=== PATIENT | female | born 1935 | race Two or more races ===

== ENCOUNTER 2020-01-21 13:42 | Emergency (ER) | payer OTHER ==
[~2020-01-21] VITALS: Ht 152.4 cm; Wt 61.2 kg
[2020-01-22] MEDS ORDERED: ACETAMINOPHEN500 M1 PO (01:05)
== END 2020-01-22 01:19 | disposition home or self-care (01) ==
LOC: ER 13:42
DX: E86.0 Dehydration (principal); R53.1 Weakness; Z20.828 Contact with and (suspected) exposure to other viral communicable diseases